=== PATIENT | male | born 1995 | race Hispanic/Latino ===

== ENCOUNTER 2025-08-12 14:53 | Emergency (ER) | payer SELFPAY ==
[2025-08-12 14:54] VITALS: BP 120/78; PULSE 71; RESP 16; TEMP 36.8; O2SAT 100; BMI 23.6
[2025-08-12 17:41] LABS: Hematocrit 47.4 % (40-54); Hemoglobin 16.6 g/dL (13.0-16.5); Immature Granulocytes Count 0.020 X10^3/uL (0.0-0.0); Mean Corp Hgb Conc 35.0 g/dL (32-36); Mean Corpuscular Volume 89.3 fL (80-94); Mean Platelet Vol. 9.4 fl (6.2-12.0); NRBC Flagged by Analyzer 0 % (0-5); Platelet Count 273 K/mm3 (150-450); RBC Distribution Width CV 12.0 % (11.6-14.6); RBC Distribution Width SD 39.4 fl (35.1-43.9); Red Blood Count 5.31 M/mm3 (4.6-6.2); White Blood Count 7.3 K/mm3 (4.4-11.0)
[2025-08-12 18:21] LABS: AST(SGOT) 30 U/L (<=37); Alanine Aminotransfer ALT/SGPT 33 U/L (<=46); Albumin, Serum 4.9 g/dL (3.5-5.0); Alkaline Phosphatase 69 U/L (40-129); Anion Gap 11 (5-15); BUN 15 mg/dL (4-19); BUN/Creat Ratio 18.8 RATIO (10-20); Calcium,Total 9.5 mg/dL (7.6-11.0); Carbon Dioxide 26.1 mmol/L (21.0-32.0); Chloride 100 mmol/L (98-108); Estimated Creatinine Clearance 94.63 ml/min (50-250); Globulin 3.2 g/dL (2.2-4.2); Glucose 95 mg/dL (70-99); Lipase 21 U/L (13-75); Potassium 3.9 mmol/L (3.3-5.1)
[2025-08-12 18:27] VITALS: BP 116/64; PULSE 76; RESP 16; O2SAT 100
--- NOTE | 2025-08-12 19:22 | ED.VIS.GI ---
HPI HPI - GI History of Present Illness Chief Complaint: Abd Pain Narrative Narrative: 29-year-old male who denies significant past medical history, Romanian-speaking only, presents with 5 months of intermittent abdominal pain and spitting up blood. He was offered a third constitution party faith healer, but declines as he has a friend from [facility] here that is willing to interpret for him. He relays history that over the last 5 months, there are times when he will have epigastric and shifting abdominal pain to the right and left the last for 3 days. On occasion he has spat up blood. He denies any fevers or chills. He gets occasional nausea. He is not vomiting. Denies any problems with bowel movements, no diarrhea. No problems with urination. No exacerbating or alleviating factors. He does not take NSAIDs. PFSH PFSH Medical History no medical history Home Medications ?Medication ?Instructions ?Recorded ?Last Taken ?Type famotidine 20 mg tablet (Pepcid) 20 mg PO BID 14 days #28 tabs 08/12/25 Unknown Rx Allergy/AdvReac Type Severity Reaction Status Date / Time pork derived (porcine) Allergy Hives Verified 08/12/25 14:57 Surgical History no surgical history Social History Smoking Status: Never smoker ROS ROS ED ROS Narrative Review of systems positive for epigastric abdominal pain shifting to the right and left. Has been happening for the last 5 months intermittently for 3 days at a time. Positive nausea but no vomiting. No fevers or chills. No dysuria or hematuria, no problems with bowel movements. No exacerbating or alleviating factors. EXAM Physical Exam Narrative Exam Narrative: Afebrile. Vital signs noted. Nontoxic-appearing. Cardiovascular examination reveals a regular rate and rhythm. Lungs are clear to auscultation bilaterally. Abdomen is soft, nontender, without guarding or rebound. Negative Bach sign. Positive bowel sounds. Neurological examination nonfocal, nonlateralizing. Const Vital Signs: 08/12/25 14:54 08/12/25 18:27 Temperature 98.2 F Temperature Source Oral Pulse Rate 71 76 Respiratory Rate 16 16 Blood Pressure 120/78 116/64 Blood Pressure Mean 92 81 Pulse Ox 100 100 Oxygen Delivery Method Room Air Room Air MDM MDM MDM Narrative Medical decision making narrative: The differential diagnosis includes but not limited to pancreatitis versus cholecystitis versus gastritis versus nonspecific abdominal pain. Laboratory work was obtained per protocol and I reviewed it. He has normal white count of 7.3 with hemoglobin slightly hemoconcentrated 16.6 with hematocrit 47.4, platelet count normal at 273. CMP is grossly unremarkable with normal LFTs, normal sodium of 138, potassium normal 3.9, chloride 100, normal anion gap of 11. He has normal total bilirubin. Lipase is normal at 21. I do not feel he needs CT imaging or any imaging for that matter of the abdomen. I suspect that with his nonsurgical abdomen on exam that he can be discharged to follow-up. He is not having gross hematemesis, and I suspect that he may have more of a gastritis. He was given his first dose of Pepcid here and prescription written for 20 mg to take twice a day for the next 14 days. He was referred to a primary care provider and to gastroenterology for follow-up. Return instructions to the emergency department were reviewed. Disposition is discharged home in stable condition. History & Record Review Discussion w/independent historian: Patient Lab Data Attestation: I reviewed the patient's lab results. Labs: Laboratory Results - last 24 hr 08/12/25 17:32 WBC 7.3 RBC 5.31 Hgb 16.6 H Hct 47.4 MCV 89.3 MCH 31.3 MCHC 35.0 RDW Std Deviation 39.4 RDW Coeff of Kalpesh 12.0 Plt Count 273 MPV 9.4 Immature Gran % (Auto) 0.300 Neut % (Auto) 59.5 Lymph % (Auto) 32.5 [place] % (Auto) 6.3 Eos % (Auto) 1.1 Baso % (Auto) 0.3 Absolute Neuts (auto) 4.4 Absolute Lymphs (auto) 2.38 Nucleated RBC % 0 Sodium 138 Potassium 3.9 Chloride 100 Carbon Dioxide 26.1 Anion Gap 11 BUN 15 Creatinine 0.82 Estim Creat Clear Calc 94.63 Est GFR (MDRD) Non-Af 124 BUN/Creatinine Ratio 18.8 Glucose 95 Calcium 9.5 Total Bilirubin 0.41 AST 30 ALT 33 Alkaline Phosphatase 69 Total Protein 8.1 Albumin 4.9 Globulin 3.2 Albumin/Globulin Ratio 1.5 Lipase 21 Discharge Plan Triage Chief Complaint: Abd Pain ED Provider: Jacob Roberson Dx/Rx/DC Orders Clinical Impression: Gastritis, Abdominal pain Instructions: ED Gastritis (Adult), ED Gastritis Ulcer No Abx, ED Abdominal Pain Unkn Cause Male... Prescriptions: New famotidine [Pepcid] 20 mg tablet 20 mg PO BID 14 Days Qty: 28 0RF Primary Care Provider: NOT,DEFINED Referrals: Don Dang MD [Med Staff - Active Staff, Family Practice] - As soon as possible Friend,DO Tavon [Med Staff - Active Staff, Gastroenterology] - As soon as possible NOT,DEFINED [Primary Care Provider, None] Activity Restrictions/Additional Instructions: Medication as directed. Return to the emergency department with vomiting blood, increased pain, fever, new or worsening symptoms. Follow-up with gastroenterology. Print Language: Romanian Disposition Disposition: Home, Self Care
[2025-08-12 19:33] VITALS: BP 125/74; PULSE 67; RESP 18; TEMP 36.8; O2SAT 99
== END 2025-08-12 19:45 | disposition home or self-care (01) ==
PROVIDERS: Emergency Provider Emergency Medicine; Visit Provider Emergency Medicine
DX: K29.70 Gastritis, unspecified, without bleeding (principal); R04.2 Hemoptysis
CPT/HCPCS: 36415; 80053; 83690; 85025; 99282